=== PATIENT | female | born 1980 | race African-American/Black ===

== ENCOUNTER 2024-09-07 15:09 | Inpatient (IN) | payer OTHER ==
[2024-09-07] MEDS ORDERED: LIDOCAINE 2.5%/PRILOCAINE 2.5% (5 Gram/TUBE) TP ONE (16:23)
[2024-09-07] MEDS ORDERED: morphine SULFATE 4 MG/ML VIAL IM ONE ×2 (17:04→17:30)
[2024-09-07] MEDS: LIDOCAINE 2.5%/PRILOCAINE 2.5% (5 Gram/TUBE) TP ONE (17:21)
[2024-09-07 19:08] LABS: PH,URINE 5.5 (5.0-8.0); URINE APPEARANCE TURBID; URINE BILIRUBIN NEGATIVE (NEGATIVE); URINE COLOR YELLOW; URINE GLUCOSE (UA) NEGATIVE (NEGATIVE); URINE KETONE NEGATIVE (NEGATIVE); URINE LEUK ESTERASE 3+ (NEGATIVE); URINE NITRITE NEGATIVE (NEGATIVE); URINE PROTEIN 2+ (NEGATIVE)
[2024-09-07 19:14] LABS: ABSOLUTE IMMATURE GRANULOCYTES 0.03 x10^3/uL (0.0-0.031); BASOPHILS # 0.04 x10^3/uL (0.01-0.08); EOSINOPHIL % 2.6 % (0.7-5.8); EOSINOPHILS # 0.24 x10^3/uL (0.04-0.36); HEMATOCRIT 26.8 % (34.1-44.9); HEMOGLOBIN 8.4 g/dL (11.2-15.7); MCHC 31.3 g/dl (32.2-35.5); MEAN CELL VOLUME 77.7 fl (79.4-94.8); MEAN PLT VOLUME 9.7 fl (9.4-12.3); MONOCYTE # 0.78 x10^3/uL (0.24-0.86); MONOCYTE % 8.4 % (4.7-12.5); PLATELET COUNT 467 x10^3/uL (182-369); RDW 16.1 % (12.2-17.1)
[2024-09-07 19:40] LABS: POTASSIUM 4.2 mmol/L (3.5-5.1)
[2024-09-07 19:43] LABS: ALBUMIN 1.8 g/dl (3.4-5.0); CALCIUM 9.2 mg/dL (8.5-10.1)
[2024-09-07 19:46] LABS: CREATININE 0.6 mg/dL (0.55-1.3)
[2024-09-07 19:48] LABS: BILIRUBIN,TOTAL 0.2 mg/dL (0.2-1); TOT PROT 7.4 g/dl (6.4-8.2)
[2024-09-07] MEDS ORDERED: morphine SULFATE 4 MG/ML VIAL ONE (22:40)
[2024-09-07] MEDS ORDERED: CEFTRIAXONE 1 GM/50 ML BAG ONE (22:41)
[2024-09-07 22:52] LABS: EPI CELLS 61.7 /uL (0-25.1); HYALINE CASTS 3.08 /uL (0-3.1); URINE BACTERIA 5740.2 /uL (0-1359); URINE RBC 823.8 /uL (0-23.9); URINE WBC 9060.3 /uL (0-25.8)
[2024-09-07] MEDS ORDERED: SULFAMETHOXAZOLE/TRIMETHOPRIM 800MG/160MG D.S. TABLET ONE (22:59)
[2024-09-07] MEDS: morphine CARPU-JECT 4 MG/1 ML DISP.SYRIN IVPUSH ONE (22:59)
[2024-09-07] MEDS: SULFAMETHOXAZOLE/TRIMETHOPRIM 800MG/160MG D.S. TABLET PO ONE (23:26)
[2024-09-07] MEDS ORDERED: oxyCODONE HCL 5 MG TABLET PO PRN (23:32)
[2024-09-07] MEDS: SODIUM CHLORIDE 1,000 ML IV SCH (23:56)
[2024-09-08] MEDS: INSULIN ASPART SLIDING SCALE (NOVOLOG) 1 VIAL SQ SCH ×2 (06:41→17:05)
[2024-09-08] MEDS: DOXYCYCLINE INJECTION 100 MG in DEXTROSE 5%-WATER 100 ML IVPB SCH (10:32)
[2024-09-08] MEDS: predniSONE 20 MG TABLET (UD) PO SCH (10:32)
[2024-09-08] MEDS ORDERED: MIDAZOLAM HCL 2 MG/2 ML SINGLE DOSE VIAL ONE (12:10)
[2024-09-08] MEDS ORDERED: PROPOFOL 20 ML ONE (12:10)
[2024-09-08] MEDS: CLINDAMYCIN 600 MG PREMIX BAG IVPB ONE (12:36)
[2024-09-08] MEDS ORDERED: LACTATED RINGERS SOLUTION 1,000 ML IV SCH (13:15)
[2024-09-08] MEDS: SODIUM CHLORIDE 1,000 ML IV SCH (14:10)
[2024-09-08] MEDS: VANCOMYCIN HCL IN 5 % DEXTROSE 1,500 MG/300 ML BAG IVPB ONE (17:05)
[2024-09-08] MEDS: AZTREONAM 1 GM in DEXTROSE 5%-WATER - 50 ML IVPB SCH (18:46)
[2024-09-08] MEDS: INSULIN GLARGINE (LANTUS) 100 UNITS/ML UNITS SQ SCH (21:47)
[2024-09-08] MEDS: TAMSULOSIN HCL 0.4 MG CAP PO SCH (21:47)
[2024-09-08] MEDS: BACLOFEN 10 MG TABLET (FP) PO SCH (21:47)
[2024-09-08] MEDS ORDERED: DOXYCYCLINE INJECTION 100 MG in DEXTROSE 5%-WATER 100 ML IVPB SCH (22:00)
[2024-09-08] MEDS ORDERED: PATIENT'S OWN MEDICATION (NON-FORMULARY) (Tizanidine Hcl [Tizanidine Hcl] 4 MG Tablet) PO SCH (22:00)
[2024-09-08] MEDS ORDERED: predniSONE 20 MG TABLET (UD) PO SCH (22:00)
[2024-09-09] MEDS ORDERED: EMPAGLIFLOZIN (JARDIANCE) 10 MG TABLET PO SCH (07:00)
[2024-09-09 08:57] LABS: POTASSIUM 4.5 mmol/L (3.5-5.1)
[2024-09-09 08:59] LABS: CALCIUM 8.5 mg/dL (8.5-10.1)
[2024-09-09 09:00] LABS: ALBUMIN 1.7 g/dl (3.4-5.0); BLOOD UREA NITROGEN 23.7 mg/dL (7-18); MAGNESIUM 2.2 mg/dL (1.8-2.4)
[2024-09-09 09:03] LABS: PHOSPHOROUS 4.7 mg/dL (2.5-4.9)
[2024-09-09 09:04] LABS: BILIRUBIN,TOTAL 0.3 mg/dL (0.2-1)
[2024-09-09 09:06] LABS: HEMATOCRIT 28.1 % (34.1-44.9); HEMOGLOBIN 8.7 g/dL (11.2-15.7); MEAN CELL VOLUME 78.5 fl (79.4-94.8); MEAN PLT VOLUME 9.6 fl (9.4-12.3); PLATELET COUNT 472 x10^3/uL (182-369); RDW 16.2 % (12.2-17.1); Reticulocyte % 0.81 % (0.5-1.7)
[2024-09-09] MEDS: ENOXAPARIN NA (PORCINE) 40 MG/0.4 ML DISP.SYRIN SQ SCH (09:20)
[2024-09-09] MEDS: PANTOPRAZOLE 20 MG TABLET PO SCH (09:20)
[2024-09-09] MEDS ORDERED: PATIENT'S OWN MEDICATION (NON-FORMULARY) (Omeprazole [Omeprazole] 20 MG Tablet.Dr) PO SCH (10:00)
[2024-09-09] MEDS: IBUPROFEN 600 MG TABLET (FP) PO PRN (11:31)
[2024-09-09] MEDS: AZTREONAM 1 GM in DEXTROSE 5%-WATER - 50 ML IVPB SCH (12:54)
[2024-09-09] MEDS: VANCOMYCIN 1 GM PREMIX (F) 1 GM/200 ML BAG IVPB SCH (13:02)
[2024-09-09] MEDS: INSULIN GLARGINE (LANTUS) 100 UNITS/ML UNITS SQ SCH (21:35)
[2024-09-10] MEDS ORDERED: VANCOMYCIN 1 GM PREMIX (F) 1 GM/200 ML BAG IVPB SCH
[2024-09-10] MEDS: VANCOMYCIN/WATER 1250 MG 1,250 MG/250 ML BAG IVPB SCH (00:07)
[2024-09-10 10:07] LABS: HEMATOCRIT 24.4 % (34.1-44.9); HEMOGLOBIN 7.5 g/dL (11.2-15.7); MCHC 30.7 g/dl (32.2-35.5); MEAN CELL VOLUME 79.2 fl (79.4-94.8); MEAN PLT VOLUME 9.2 fl (9.4-12.3); PLATELET COUNT 398 x10^3/uL (182-369); RDW 16.3 % (12.2-17.1)
[2024-09-10 10:30] LABS: POTASSIUM 4.2 mmol/L (3.5-5.1)
[2024-09-10 10:44] LABS: ALBUMIN 1.6 g/dl (3.4-5.0); BLOOD UREA NITROGEN 28.8 mg/dL (7-18); CALCIUM 8.7 mg/dL (8.5-10.1)
[2024-09-10 10:45] LABS: MAGNESIUM 2.1 mg/dL (1.8-2.4)
[2024-09-10 10:49] LABS: BILIRUBIN,TOTAL 0.2 mg/dL (0.2-1)
[2024-09-10 10:51] LABS: TOT PROT 6.4 g/dl (6.4-8.2)
[2024-09-10] MEDS: INSULIN (NOVOLOG) ASPART 100 UNITS/ML 10ML VIAL SQ SCH (12:06)
[2024-09-10] MEDS: MECLIZINE HCL 12.5 MG TABLET PO ONE (17:49)
[2024-09-10] MEDS: ONDANSETRON 4 MG/2 ML VIAL IVPUSH PRN (17:52)
[2024-09-10] MEDS: INSULIN GLARGINE (LANTUS) 100 UNITS/ML UNITS SQ SCH (22:55)
[2024-09-11 08:45] LABS: HEMATOCRIT 25.8 % (34.1-44.9); HEMOGLOBIN 7.8 g/dL (11.2-15.7); MCHC 30.2 g/dl (32.2-35.5); MEAN CELL VOLUME 78.9 fl (79.4-94.8); MEAN PLT VOLUME 9.6 fl (9.4-12.3); PLATELET COUNT 463 x10^3/uL (182-369); RDW 16.5 % (12.2-17.1)
[2024-09-11 08:57] LABS: POTASSIUM 4.4 mmol/L (3.5-5.1)
[2024-09-11 09:01] LABS: ALBUMIN 1.7 g/dl (3.4-5.0); CALCIUM 8.9 mg/dL (8.5-10.1)
[2024-09-11 09:05] LABS: CREATININE 0.7 mg/dL (0.55-1.3)
[2024-09-11 09:06] LABS: BILIRUBIN,TOTAL 0.3 mg/dL (0.2-1); TOT PROT 6.6 g/dl (6.4-8.2)
[2024-09-11] MEDS: LACTOBACILLUS ACIDOPHILUS 1 TABLET PO SCH (11:28)
[2024-09-11] MEDS: CycloBENZAprine HCL 5 MG TABLET PO SCH (14:43)
[2024-09-11] MEDS ORDERED: PIPERACILLIN/TAZOB 3.375 GM 3.375 GM in DEXTROSE 5%-WATER - 50 ML IVPB SCH (18:00)
[2024-09-12 08:10] LABS: HEMATOCRIT 24.4 % (34.1-44.9); HEMOGLOBIN 7.6 g/dL (11.2-15.7); MCHC 31.1 g/dl (32.2-35.5); MEAN CELL VOLUME 77.7 fl (79.4-94.8); MEAN PLT VOLUME 9.2 fl (9.4-12.3); PLATELET COUNT 404 x10^3/uL (182-369); RDW 16.7 % (12.2-17.1)
[2024-09-12 08:29] LABS: POTASSIUM 3.6 mmol/L (3.5-5.1)
[2024-09-12 08:46] LABS: BLOOD UREA NITROGEN 19.8 mg/dL (7-18)
[2024-09-12 08:47] LABS: CALCIUM 8.9 mg/dL (8.5-10.1)
[2024-09-12 08:49] LABS: CREATININE 0.6 mg/dL (0.55-1.3)
[2024-09-12] MEDS: KETOROLAC TROMETHAMINE 15 MG/ML VIAL IVPUSH ONE (08:52)
[2024-09-12] MEDS: PROCHLORPERAZINE INJECTION 10 MG/2 ML VIAL IVPB ONE (08:54)
[2024-09-12] MEDS: ASPIRIN COATED 81 MG TABLET.EC PO SCH (09:03)
[2024-09-12] MEDS ORDERED: DAPTOMYCIN IVPB SCH (10:00)
[2024-09-12] MEDS ORDERED: SODIUM CHLORIDE IVPB SCH (10:00)
[2024-09-12] MEDS: PIPERACILLIN/TAZOB 3.375 GM 3.375 GM in DEXTROSE 5%-WATER - 50 ML IVPB SCH (10:52)
[2024-09-12] MEDS ORDERED: PIPERACILLIN/TAZOB 3.375 GM 3.375 GM in DEXTROSE 5%-WATER - 50 ML IVPB SCH (11:00)
[2024-09-13 11:43] VITALS: BMI 18.9
[2024-09-13] MEDS: AMINO ACIDS/PROTEIN HYDROLYS 30 ML LIQUID.PKT PO SCH (12:07)
[2024-09-13] MEDS: MULTIVIT-MINERALS ORAL LIQUID PO SCH (12:54)
[2024-09-13] MEDS: INSULIN (NOVOLOG) ASPART 100 UNITS/ML 10ML VIAL SQ SCH (16:53)
[2024-09-14 03:18] VITALS: RESP 18
[2024-09-14] MEDS: MULTIVITAMINS THER W-MINERALS COMBO TABLET (FP) PO SCH (09:33)
[2024-09-14] MEDS ORDERED: CycloBENZAprine HCL 5 MG TABLET PO PRN (13:06)
[2024-09-14 21:24] VITALS: TEMP 98.2
[2024-09-14] MEDS: INSULIN GLARGINE (LANTUS) 100 UNITS/ML UNITS SQ SCH (21:31)
[2024-09-14 21:47] VITALS: BP 151/92; PULSE 110
== END 2024-09-14 22:05 | DRG 871 ==
LOC: JER 15:09 → JERBED 19:11 → J6S 09-08 03:12
PROVIDERS: ADMIT Hospitalist; ATTEND Internal Medicine
PROC: 0X9500Z Drainage of Left Axilla with Drainage Device, Open Approach (ICD-10-PCS; principal; 2024-09-09)
DX: A41.9 Sepsis, unspecified organism (principal); L89.153 Pressure ulcer of sacral region, stage 3; L89.323 Pressure ulcer of left buttock, stage 3; L89.313 Pressure ulcer of right buttock, stage 3; L02.412 Cutaneous abscess of left axilla; I10 Essential (primary) hypertension; E78.5 Hyperlipidemia, unspecified; D50.9 Iron deficiency anemia, unspecified; R33.9 Retention of urine, unspecified; R31.29 Other microscopic hematuria; L72.3 Sebaceous cyst; E88.09 Other disorders of plasma-protein metabolism, not elsewhere classified; G43.909 Migraine, unspecified, not intractable, without status migrainosus; R82.71 Bacteriuria
CPT/HCPCS: 36415; 70450-TC; 71260-TC; 80048; 80053; 81003; 81025; 82728; 82962; 83036; 83540; 83550; 83605; 83735; 84100; 84703; 85025; 85027; 87040; 87070; 87086; 87205; 93005; 93010; 94760; 99285-25; J0475; J0878; Q9967